=== PATIENT | male | born 1950 | race Caucasian/White ===

== ENCOUNTER → 2017-04-06 | Outpatient (CLI) | payer OTHER ==
--- NOTE | 2017-04-16 10:42 | RSPPFT ---
DATE OF PROCEDURE: 04/06/17 COMMENTS: VOLUMES DYNAMIC: FVC and FEV1 normal. STATIC: FRC and TLC mildly reduced; RV normal. FLOWS: FEV1% and FEF 25-75 above normal. DIFFUSION: Normal. FLOW VOLUME LOOP: Restrictive configuration. IMPRESSION: Mild restrictive ventilatory defect with no significant airways obstruction, no improvement post-bronchodilator. Diffusion capacity is normal.
== END ==
LOC: HRSP 11:57
PROVIDERS: ATTEND Internal Medicine
DX: J98.4 Other disorders of lung (principal); R05 Cough
CPT/HCPCS: 94060; 94620; 94726; 94729